=== PATIENT | female | born 1990 | race Caucasian/White ===

== ENCOUNTER 2018-02-02 12:00 | Emergency (ER) | payer OTHER ==
[~2018-02-02] VITALS: Ht 177.8 cm; Wt 57.7 kg
[2018-02-02] MEDS ORDERED: METH40TA3 PO (12:35)
[2018-02-02] MEDS ORDERED: KETOROLAC 30 MG/1 ML IVPush ONE (13:00)
[2018-02-02] MEDS ORDERED: SODIUM CHLORIDE 0.9% 1,000ML IVBOLUS ONE (13:00)
[2018-02-02] MEDS ORDERED: KETOROLAC 30 MG/1 ML ONE (13:03)
[2018-02-02 13:29] LABS: MEAN CORPUSCULAR HEMOGLOBIN 29.1 pg (27.0-34.8); MEAN CORPUSCULAR HGB CONC 33.2 g/dL (32.4-35.8); MEAN CORPUSCULAR VOLUME 87.7 fL (80-100); MEAN PLATELET VOLUME 7.3 fL (7.4-10.4); PLATELET COUNT 221 x10^3/uL (130-400); RED BLOOD COUNT 4.05 x10^6/uL (3.82-5.3); RED CELL DISTRIBUTION WIDTH 14.1 % (9.6-15.2)
[2018-02-02 13:42] LABS: ALANINE AMINOTRANSFERASE 18 U/L (12-78); ALBUMIN 2.4 g/dL (3.4-5.0); ANION GAP 6 mmol/L (5-15); CALCIUM 8.1 mg/dL (8.5-10.1); CHLORIDE 103 mmol/L (98-107); CREATININE 0.88 mg/dL (0.55-1.02)
[2018-02-02 13:46] LABS: ALKALINE PHOSPHATASE 98 U/L (45-117); BILIRUBIN,TOTAL 0.2 mg/dL (0.2-1.0); TROPONIN I < 0.015 ng/mL (0.000-0.045)
[2018-02-02] MEDS ORDERED: CEFTRIAXONE PMX 1GM/50ML 50 ML IVPB ONE (14:00)
[2018-02-02] MEDS ORDERED: CEFTRIAXONE PMX 1GM/50ML 50 ML ONE (14:02)
[2018-02-02] MEDS ORDERED: MORPHINE SULFATE 4 MG/ML, 1ML ONE (14:21)
[2018-02-02 14:27] LABS: MD YES
[2018-02-02 14:30] LABS: BAND#(MANUAL) 0.96 x10^3/uL; BANDS%(MANUAL) 9 % (0-7); EOS#(MANUAL) 0.11 x10^3/uL (0.0-0.4); EOS% (MANUAL) 1 % (1-7); LYMPH#(MANUAL) 0.86 x10^3/uL (1-3.4); LYMPHS% (MANUAL) 8 % (22-44); MONOS#(MANUAL) 0.21 x10^3/uL (0.3-2.7); MONOS% (MANUAL) 2 % (2-9); SEG#(MANUAL) 8.56 x10^3/uL (1.8-6.8); SEGS% (MANUAL) 80 % (42-75)
[2018-02-02] MEDS ORDERED: morphine SULFATE 10 MG/ML, 1ML IVPush ONE (14:30)
[2018-02-02] MEDS ORDERED: ONDANSETRON 2MG/ML, 2ML IVPush ONE (14:30)
[2018-02-02] MEDS ORDERED: AZITHROMYCIN 500 MG in SODIUM CHLORIDE 0.9% 250 ML IV ONE (14:30)
[2018-02-02 14:36] LABS: TOXIC GRAN 1+
[2018-02-02 14:37] LABS: <PLATELET ESTIMATE> ADEQUATE; <PLT MORPHOLOGY> NORMAL PLT MORPH
[2018-02-02 14:58] LABS: HCG UR SG 1.024 (1.003-1.030)
[2018-02-02 15:33] VITALS: BP 92/56
== END 2018-02-02 16:18 | disposition home or self-care (01) ==
LOC: ED 16:05
DX: J15.9 Unspecified bacterial pneumonia (principal); R09.1 Pleurisy; F17.200 Nicotine dependence, unspecified, uncomplicated
CPT/HCPCS: 36415; 71046; 80053; 81025; 83605; 84145; 84484; 85025; 85379; 87040; 87077; 87181; 93005; 96365; 96367; 96375; 99285; J0456; J0696; J1885; J2270; J7030; J7050

== ENCOUNTER 2018-08-03 10:35 | Emergency (ER) | payer MEDICAID, OTHER ==
[~2018-08-03] VITALS: Ht 177.8 cm; Wt 57.7 kg
[~2018-08-03 10:35] MED LIST: METH40TA3 PO
[2018-08-03] MEDS ORDERED: QUET100T4 PO (10:56)
--- NOTE | 2018-08-03 11:01 | NUR ---
pt to ed for possible withdrawal from benzos with associated n/v/loose stools and generalized aches and weakness. last used 2 days ago. pt also states used heroin last night. pt states she is ready to quit and would like referrals. connected to monitors. vss. med student evaluation complete. no needs expressed. call light within reach. awaiting edmd assessment and orders at this time.
[2018-08-03] MEDS ORDERED: ONDANSETRON ODT 4 MG ONE (11:28)
[2018-08-03] MEDS ORDERED: LORazepam 2 MG/ML, 1ML ONE (11:29)
[2018-08-03] MEDS ORDERED: LORazepam 2 MG/ML, 1ML IVPush ONE (11:30)
[2018-08-03] MEDS ORDERED: ONDANSETRON ODT 4 MG PO ONE (11:30)
--- NOTE | 2018-08-03 11:47 | NUR ---
iv established. labs drawn and ua collected and sent. pt medicated per jun. sw at bedside to begin consult. no needs at this time. call light within reach. vss. awaiting results.
[2018-08-03 12:11] LABS: BASOPHILS # (AUTO) 0.11 x10^3/uL (0-0.1); BASOPHILS % (AUTO) 1 % (0-1); EOSINOPHILS # (AUTO) 0.01 x10^3/uL (0-0.4); EOSINOPHILS % (AUTO) 0 % (1-7); LYMPHOCYTES # (AUTO) 2.04 x10^3/uL (1-3.4); LYMPHOCYTES % (AUTO) 24 % (22-44); MD NO; MEAN CORPUSCULAR HEMOGLOBIN 28.6 pg (27.0-34.8); MEAN CORPUSCULAR HGB CONC 33.3 g/dL (32.4-35.8); MEAN PLATELET VOLUME 6.9 fL (7.4-10.4); MONOCYTES # (AUTO) 0.36 x10^3/uL (0.2-0.8); MONOCYTES % (AUTO) 4 % (2-9); NEUTROPHILS # (AUTO) 5.89 x10^3/uL (1.8-6.8); NEUTROPHILS % (AUTO) 70 % (42-75); PLATELET COUNT 427 x10^3/uL (130-400); RED BLOOD COUNT 5.15 x10^6/uL (3.82-5.3); RED CELL DISTRIBUTION WIDTH 14.8 % (9.6-15.2)
[2018-08-03 12:12] LABS: ALANINE AMINOTRANSFERASE 38 U/L (12-78); ANION GAP 5 mmol/L (5-15); CALCIUM 9.3 mg/dL (8.5-10.1); CHLORIDE 105 mmol/L (98-107); CREATININE 0.68 mg/dL (0.55-1.02)
[2018-08-03 12:14] LABS: ALKALINE PHOSPHATASE 110 U/L (45-117); BILIRUBIN,TOTAL 0.7 mg/dL (0.2-1.0); TOTAL PROTEIN 8.3 g/dL (6.4-8.2)
[2018-08-03 12:18] LABS: ACETAMINOPHEN < 2 mcg/mL (10-30); SALICYLATE LEVEL < 1.7 mg/dL (2.8-20.0)
[2018-08-03 12:20] LABS: AMPHETAMINE SCREEN, URINE Negative (Negative); BARBITURATE SCREEN, URINE Negative (Negative); BENZODIAZEPINE SCREEN, URINE Negative (Negative); CANNABINOID SCREEN, URINE Positive (Negative); COCAINE SCREEN, URINE Negative (Negative); METHADONE SCREEN, URINE Negative (Negative); OPIATE SCREEN, URINE Positive (Negative)
--- NOTE | 2018-08-03 12:39 | NUR ---
all results back at this time. chart up for recheck.
[2018-08-03 13:07] VITALS: BP 133/73
--- NOTE | 2018-08-03 13:08 | NUR ---
PT RESTING IN ROOM WITH SO AT BEDSIDE. VSS. NO NEEDS EXPRESSED. CALL LIGHT WITHIN REACH. AWAITING SW AND REFERRAL DECISIONS.
--- NOTE | 2018-08-03 14:06 | NUR ---
DIET TRAY ORDERED AND PROVIDED. PT RESTING IN ROOM WITH SO AT BEDSIDE. NO NEEDS EXPRESSED. VSS. AWAITING [facility] EVALUATION.
--- NOTE | 2018-08-03 14:33 | NUR ---
TASK RN: [facility] CALLED AND SPOKE WITH THIS RN STATING THAT PT IS APPROPRIATE FOR THIER CARE AND MUST COME TO FACILITY TO BE EVALUATED FOR ADMIT. ERP,PRIMARY RN AND PT AWARE. PT DEMONSTRATES UNDERSTANDING. [facility] PHONE NUMBER AND ADDRESS PROVIDED TO PT. DC INSTRUCTION PROVIDED, PT DEMONSTRATES UNDERSTANDING. PT AMBULATED STEADILY TO DC WITH RN AND FRIEND. FRIEND TO TRANSPORT PT HOME.
== END 2018-08-03 14:36 | disposition home or self-care (01) ==
LOC: ED 11:19
DX: F11.129 Opioid abuse with intoxication, unspecified (principal); F31.9 Bipolar disorder, unspecified; F41.1 Generalized anxiety disorder; F17.200 Nicotine dependence, unspecified, uncomplicated
CPT/HCPCS: 36415; 80053; 80307; 80329; 85025; 93005; 96374; 99284; J2060; Q0162; G0480

== ENCOUNTER 2018-10-20 07:01 | Emergency (ER) | payer MEDICAID ==
[~2018-10-20] VITALS: Ht 177.8 cm; Wt 60.6 kg
[~2018-10-20 07:01] MED LIST changes: +QUET100T4 PO
[2018-10-20 07:24] VITALS: BP 96/67
--- NOTE | 2018-10-20 07:46 | NUR ---
COMFORT MEASURES TAKEN FOR PATIENT. PULSE OX ESTABLISHED. PATIENT SLEEPY BUT AWAKE TO VOICE.
[2018-10-20] MEDS ORDERED: LIDOCAINE-MPF 1%, 5ML ONE ×2 (07:57→09:19)
[2018-10-20] MEDS ORDERED: LIDOCAINE-MPF 1%, 5ML INFIL ONE (08:00)
[2018-10-20] MEDS ORDERED: ALPR1TAB10 SL (08:09)
[2018-10-20] MEDS ORDERED: CEFAZOLIN 1,000 MG IM ONE (08:30)
[2018-10-20 08:43] LABS: BASOPHILS # (AUTO) 0.04 x10^3/uL (0-0.1); BASOPHILS % (AUTO) 1 % (0-1); EOSINOPHILS # (AUTO) 0.22 x10^3/uL (0-0.4); EOSINOPHILS % (AUTO) 3 % (1-7); LYMPHOCYTES # (AUTO) 1.66 x10^3/uL (1-3.4); LYMPHOCYTES % (AUTO) 21 % (22-44); MD NO; MEAN CORPUSCULAR VOLUME 87.7 fL (80-100); MEAN PLATELET VOLUME 6.9 fL (7.4-10.4); MONOCYTES # (AUTO) 0.62 x10^3/uL (0.2-0.8); MONOCYTES % (AUTO) 8 % (2-9); NEUTROPHILS # (AUTO) 5.21 x10^3/uL (1.8-6.8); NEUTROPHILS % (AUTO) 67 % (42-75); PLATELET COUNT 282 x10^3/uL (130-400); RED BLOOD COUNT 4.35 x10^6/uL (3.82-5.3); RED CELL DISTRIBUTION WIDTH 13.9 % (9.6-15.2)
[2018-10-20 08:45] LABS: ALBUMIN 3.2 g/dL (3.4-5.0); ANION GAP 5 mmol/L (5-15); CALCIUM 8.6 mg/dL (8.5-10.1); CHLORIDE 107 mmol/L (98-107)
[2018-10-20 08:52] LABS: ALANINE AMINOTRANSFERASE 84 U/L (12-78); ALKALINE PHOSPHATASE 120 U/L (45-117); BILIRUBIN,TOTAL 0.6 mg/dL (0.2-1.0); TOTAL PROTEIN 6.6 g/dL (6.4-8.2)
[2018-10-20] MEDS ORDERED: CEFAZOLIN 1,000 MG ONE (09:19)
--- NOTE | 2018-10-20 09:41 | NUR ---
PT GIVEN ABX AND INSTRUCTIONS FOR WOUND CARE. PT VERBALIZED UNDERSTANDING.
== END 2018-10-20 09:56 | disposition home or self-care (01) ==
LOC: ED 09:14
DX: L02.414 Cutaneous abscess of left upper limb (principal); F11.129 Opioid abuse with intoxication, unspecified; F41.1 Generalized anxiety disorder; F31.9 Bipolar disorder, unspecified
CPT/HCPCS: 10060; 36415; 80053; 84703; 85025; 96372; 99283; J0690

== ENCOUNTER 2019-11-05 11:28 | Inpatient (IN) | payer MEDICAID ==
[~2019-11-05] VITALS: Ht 177.8 cm; Wt 87.4 kg
[~2019-11-05 11:28] MED LIST changes: +ALPR1TAB10 SL
--- NOTE | 2019-11-05 11:53 | NUR ---
Late entry due to pt care: Pt BIB [facility] from [facility]-Pt found unresponsive on floor of hotel room. Pt admits to heroin and alcohol use yesterday. Unknown amount of time spent on floor, at least 6 hours per pt. R shoulder with sunburn as well as large scabbed abrasion, R hand with bruising, blanchable redness and edema, R lateral upper thigh with blanchable redness, Bilat 5th toes with abrasions, L knee with blanchable redness. Pt A&O x4 but very drowsy. Occasional loose cough noted, pt reports no recent illness. Continuous heart, oxygen and BP monitors applied, all safety measures observed. Pt given sips of water per Dr. Dumas.
[2019-11-05] MEDS ORDERED: SODIUM CHLORIDE 0.9% 1,000ML IVBOLUS ONE ×2 (12:00→14:00)
[2019-11-05] MEDS ORDERED: PLEASE ENTER HEIGHT AND WEIGHT MC SCH (12:00)
[2019-11-05] MEDS ORDERED: ALPR1TAB2 PO (12:05)
[2019-11-05] MEDS ORDERED: HYDR25CA PO (12:05)
[2019-11-05] MEDS ORDERED: PROP20TA PO (12:05)
[2019-11-05 12:16] LABS: BASOPHILS % (AUTO) 0 % (0-1); EOSINOPHILS % (AUTO) 0 % (1-7); LYMPHOCYTES # (AUTO) 0.57 x10^3/uL (1-3.4); LYMPHOCYTES % (AUTO) 7 % (22-44); MD NO; MEAN CORPUSCULAR HGB CONC 33.2 g/dL (32.4-35.8); MEAN CORPUSCULAR VOLUME 93.3 fL (80-100); MEAN PLATELET VOLUME 7.4 fL (7.4-10.4); MONOCYTES # (AUTO) 0.19 x10^3/uL (0.2-0.8); MONOCYTES % (AUTO) 2 % (2-9); NEUTROPHILS # (AUTO) 7.88 x10^3/uL (1.8-6.8); NEUTROPHILS % (AUTO) 91 % (42-75); PLATELET COUNT 347 x10^3/uL (130-400); RED BLOOD COUNT 4.91 x10^6/uL (3.82-5.3); RED CELL DISTRIBUTION WIDTH 12.1 % (9.6-15.2)
[2019-11-05 12:30] LABS: ALBUMIN 3.7 g/dL (3.4-5.0); ANION GAP 8 mmol/L (5-15); CALCIUM 7.9 mg/dL (8.5-10.1); CHLORIDE 103 mmol/L (98-107); CREATININE 1.77 mg/dL (0.55-1.02)
[2019-11-05 12:37] LABS: TROPONIN I 0.577 ng/mL (0.000-0.045)
--- NOTE | 2019-11-05 12:43 | NUR ---
Dannie Chin [phone]
[2019-11-05] MEDS ORDERED: CLINDAMYCIN PMX 600MG/50ML 50 ML IV ONE (13:00)
[2019-11-05] MEDS ORDERED: CEFTRIAXONE PMX 1GM/50ML 50 ML IV ONE (13:00)
[2019-11-05] MEDS ORDERED: CEFTRIAXONE PMX 1GM/50ML 50 ML ONE (13:18)
[2019-11-05] MEDS ORDERED: CLINDAMYCIN PMX 600MG/50ML 50 ML ONE (13:18)
--- NOTE | 2019-11-05 13:39 | NUR ---
Patient is resting comfortably in bed, drowsy but easily rousable, A&Ox4. Vital Signs within normal limits. IV Rocephin hung.
--- NOTE | 2019-11-05 14:18 | NUR ---
ERMD AT BEDSIDE TO DISCUSS POC
[2019-11-05] MEDS ORDERED: INSULIN REGULAR 100 UNITS/ML, 3ML VIAL IVPush ONE (14:30)
[2019-11-05] MEDS ORDERED: DEXTROSE 50%, 50ML VIAL IVPush ONE (14:30)
[2019-11-05] MEDS ORDERED: SODIUM POLYSTYRENE SULFONATE ORAL SUSP PO ONE (14:30)
[2019-11-05] MEDS ORDERED: INSULIN SINGLE DOSE, ER ONE (14:31)
[2019-11-05] MEDS ORDERED: SODIUM POLY SULFONATE UDC 15 GM/60 ML ONE (14:31)
[2019-11-05] MEDS ORDERED: DEXTROSE 50%, 50ML SYRINGE ONE (14:31)
[2019-11-05] MEDS: SODIUM CHLORIDE 0.9% 1,000 ML IV SCH ×2 (14:42→20:08)
--- NOTE | 2019-11-05 14:53 | NUR ---
Report given to [facility].
[2019-11-05] MEDS ORDERED: PROMETHAZINE 25 MG/ML, 1ML IM PRN (15:00)
[2019-11-05] MEDS ORDERED: ONDANSETRON 2MG/ML, 2ML IVPush PRN (15:00)
[2019-11-05] MEDS ORDERED: hydrALAzine 20 MG/ML, 1ML IVPush PRN (15:00)
[2019-11-05] MEDS ORDERED: morphine SULFATE 10 MG/ML, 1ML IVPush PRN (15:00)
[2019-11-05] MEDS ORDERED: ASPIRIN 81 MG TABLET CHEW PO ONE ×2 (15:00→20:00)
[2019-11-05] MEDS: AZITHROMYCIN 500 MG in SODIUM CHLORIDE 0.9% 250 ML IV SCH (15:00)
[2019-11-05] MEDS ORDERED: CALCIUM GLUCONATE 0.46MEQ/1ML IVPush ONE (15:00)
[2019-11-05] MEDS ORDERED: LABETALOL 5MG/ML, 20ML IVPush PRN (15:00)
[2019-11-05] MEDS ORDERED: ACETAMINOPHEN 325 MG TABLET PO PRN (15:00)
[2019-11-05 15:23] LABS: ANION GAP 10 mmol/L (5-15); CALCIUM 6.8 mg/dL (8.5-10.1); CHLORIDE 107 mmol/L (98-107); CREATININE 1.22 mg/dL (0.55-1.02)
[2019-11-05] MEDS ORDERED: CALCIUM GLUCONATE 4.6 MEQ/10 ML ONE (15:27)
[2019-11-05] MEDS ORDERED: HEPARIN 5,000 UNITS/ML, 1ML ONE (15:27)
[2019-11-05] MEDS ORDERED: ASPIRIN 81 MG TABLET CHEW ONE (15:28)
[2019-11-05] MEDS ORDERED: NICOTINE 21 MG/24 HR PATCH.TD24 ONE (15:28)
--- NOTE | 2019-11-05 15:31 | NUR ---
PT BACK FROM CT
[2019-11-05] MEDS: HEPARIN 5,000 UNITS/ML, 1ML SQ SCH ×2 (15:38→23:21)
[2019-11-05] MEDS: NICOTINE 21 MG/24 HR PATCH.TD24 TD SCH (15:38)
--- NOTE | 2019-11-05 17:00 | NUR ---
Patient is resting comfortably in bed. Vital Signs within normal limits.
--- NOTE | 2019-11-05 17:34 | NUR ---
report called to bharti
[2019-11-05] MEDS: AMPICILLIN/SULBACTAM 1,500 MG in SODIUM CHLORIDE 0.9% 50 ML IV SCH ×2 (17:35→23:21)
--- NOTE | 2019-11-05 17:50 | NUR ---
Report given to TONY Acevedo on Telemetry.
--- NOTE | 2019-11-05 18:20 | NUR ---
Patient transferred to Telemetry by transport staff.
[2019-11-05] MEDS ORDERED: CALCIUM GLUCONATE 4.6 MEQ in SODIUM CHLORIDE 0.9% 100 ML IV ONE (18:30)
[2019-11-05 19:22] VITALS: BP 109/77
[2019-11-05 21:18] LABS: ANION GAP 10 mmol/L (5-15); CALCIUM 7.5 mg/dL (8.5-10.1); CHLORIDE 106 mmol/L (98-107); CREATININE 1.29 mg/dL (0.55-1.02)
[2019-11-05] MEDS ORDERED: POTASSIUM CHLORIDE 20 MEQ TAB.ER.PRT PO ONE (22:00)
[2019-11-05 23:13] LABS: HCG UR SG 1.025 (1.003-1.030)
[2019-11-05 23:16] LABS: MICROSCOPIC INDICATED
[2019-11-05 23:25] LABS: AMPHETAMINE SCREEN, URINE Positive (Negative); BARBITURATE SCREEN, URINE Negative (Negative); BENZODIAZEPINE SCREEN, URINE Positive (Negative); CANNABINOID SCREEN, URINE Positive (Negative); COCAINE SCREEN, URINE Negative (Negative); METHADONE SCREEN, URINE Negative (Negative); OPIATE SCREEN, URINE Positive (Negative)
[2019-11-06] MEDS: SODIUM CHLORIDE 0.9% 1,000 ML IV SCH ×3 (02:09→17:28)
[2019-11-06 02:12] VITALS: BP 126/87
[2019-11-06 02:52] LABS: BASOPHILS # (AUTO) 0.03 x10^3/uL (0-0.1); BASOPHILS % (AUTO) 0 % (0-1); EOSINOPHILS # (AUTO) 0.02 x10^3/uL (0-0.4); EOSINOPHILS % (AUTO) 0 % (1-7); LYMPHOCYTES # (AUTO) 1.22 x10^3/uL (1-3.4); LYMPHOCYTES % (AUTO) 16 % (22-44); MD NO; MEAN CORPUSCULAR HEMOGLOBIN 31.1 pg (27.0-34.8); MEAN CORPUSCULAR HGB CONC 33.5 g/dL (32.4-35.8); MEAN CORPUSCULAR VOLUME 92.7 fL (80-100); MEAN PLATELET VOLUME 7.2 fL (7.4-10.4); MONOCYTES # (AUTO) 0.43 x10^3/uL (0.2-0.8); MONOCYTES % (AUTO) 6 % (2-9); NEUTROPHILS # (AUTO) 6.16 x10^3/uL (1.8-6.8); NEUTROPHILS % (AUTO) 78 % (42-75); PLATELET COUNT 209 x10^3/uL (130-400); RED BLOOD COUNT 4.47 x10^6/uL (3.82-5.3); RED CELL DISTRIBUTION WIDTH 12.4 % (9.6-15.2)
[2019-11-06 02:54] LABS: ALANINE AMINOTRANSFERASE 228 U/L (12-78); ALBUMIN 2.2 g/dL (3.4-5.0); ANION GAP 8 mmol/L (5-15); CALCIUM 7.5 mg/dL (8.5-10.1); CHLORIDE 104 mmol/L (98-107); CREATININE 1.02 mg/dL (0.55-1.02)
[2019-11-06 02:56] LABS: ALKALINE PHOSPHATASE 114 U/L (45-117); BILIRUBIN,TOTAL 0.7 mg/dL (0.2-1.0); TOTAL PROTEIN 5.6 g/dL (6.4-8.2)
[2019-11-06] MEDS ORDERED: POTASSIUM CHLORIDE 40 MEQ in SODIUM CHLORIDE 0.9% 100 ML IV ONE (03:30)
[2019-11-06] MEDS ORDERED: POTASSIUM CHLORIDE 40 MEQ in SODIUM CHLORIDE 0.9% 500 ML IV ONE ×2 (03:30→09:30)
[2019-11-06] MEDS: AMPICILLIN/SULBACTAM 1,500 MG in SODIUM CHLORIDE 0.9% 50 ML IV SCH ×3 (05:14→17:28)
[2019-11-06 07:11] VITALS: BP 121/85
[2019-11-06] MEDS: HYDROcodone/APAP 5/325 TABLET PO PRN ×2 (07:31→08:45)
[2019-11-06] MEDS: HEPARIN 5,000 UNITS/ML, 1ML SQ SCH ×3 (07:35→23:50)
[2019-11-06] MEDS: OXYcodone IR 5MG TABLET PO PRN ×2 (11:49→23:50)
[2019-11-06] MEDS: ASPIRIN 81 MG TABLET CHEW PO SCH (11:49)
[2019-11-06] MEDS: CALCIUM CARBONATE 500 MG TABLET PO SCH ×2 (11:49→20:10)
[2019-11-06 12:56] VITALS: BP 117/81
[2019-11-06] MEDS ORDERED: SODIUM CHLORIDE 0.9% 1,000 ML IV SCH (14:42)
[2019-11-06] MEDS: AZITHROMYCIN 500 MG in SODIUM CHLORIDE 0.9% 250 ML IV SCH (15:19)
[2019-11-06] MEDS: NICOTINE 21 MG/24 HR PATCH.TD24 TD SCH (15:20)
[2019-11-06] MEDS: POTASSIUM CHLORIDE 20 MEQ TAB.ER.PRT PO SCH (17:28)
[2019-11-06 18:57] LABS: CLUE CELLS PRESENT (NONE SEEN); WET PREP WBCS FEW (FEW)
[2019-11-06 20:25] VITALS: BP 101/65
[2019-11-07] MEDS: AMPICILLIN/SULBACTAM 1,500 MG in SODIUM CHLORIDE 0.9% 50 ML IV SCH ×4 (00:01→17:15)
[2019-11-07] MEDS: SODIUM CHLORIDE 0.9% 1,000 ML IV SCH ×4 (00:36→23:53)
[2019-11-07 00:39] VITALS: BP 115/74
[2019-11-07 06:54] VITALS: BP 119/75
[2019-11-07 06:55] LABS: ALANINE AMINOTRANSFERASE 180 U/L (12-78); ALBUMIN 1.8 g/dL (3.4-5.0); ANION GAP 4 mmol/L (5-15); CALCIUM 7.5 mg/dL (8.5-10.1); CHLORIDE 108 mmol/L (98-107)
[2019-11-07 07:00] LABS: ALKALINE PHOSPHATASE 99 U/L (45-117); BILIRUBIN,TOTAL 0.5 mg/dL (0.2-1.0); CREATININE 0.82 mg/dL (0.55-1.02); TROPONIN I 0.677 ng/mL (0.000-0.045)
[2019-11-07 07:04] LABS: BASOPHILS # (AUTO) 0.03 x10^3/uL (0-0.1); BASOPHILS % (AUTO) 1 % (0-1); EOSINOPHILS # (AUTO) 0.04 x10^3/uL (0-0.4); EOSINOPHILS % (AUTO) 1 % (1-7); LYMPHOCYTES # (AUTO) 1.19 x10^3/uL (1-3.4); LYMPHOCYTES % (AUTO) 20 % (22-44); MD NO; MEAN CORPUSCULAR HEMOGLOBIN 30.5 pg (27.0-34.8); MEAN CORPUSCULAR HGB CONC 32.9 g/dL (32.4-35.8); MEAN CORPUSCULAR VOLUME 92.6 fL (80-100); MEAN PLATELET VOLUME 7.2 fL (7.4-10.4); MONOCYTES # (AUTO) 0.35 x10^3/uL (0.2-0.8); MONOCYTES % (AUTO) 6 % (2-9); NEUTROPHILS # (AUTO) 4.25 x10^3/uL (1.8-6.8); NEUTROPHILS % (AUTO) 73 % (42-75); PLATELET COUNT 207 x10^3/uL (130-400); RED BLOOD COUNT 3.91 x10^6/uL (3.82-5.3); RED CELL DISTRIBUTION WIDTH 12.4 % (9.6-15.2)
[2019-11-07 08:12] LABS: CREATINE KINASE, TOTAL 16571 U/L (26-192)
[2019-11-07] MEDS: OXYcodone IR 5MG TABLET PO PRN ×3 (08:25→17:15)
[2019-11-07] MEDS: HEPARIN 5,000 UNITS/ML, 1ML SQ SCH (08:25)
[2019-11-07] MEDS: CALCIUM CARBONATE 500 MG TABLET PO SCH ×2 (08:26→20:54)
[2019-11-07] MEDS: TAMSULOSIN 0.4 MG CAP.ER.24H PO SCH (08:26)
[2019-11-07] MEDS: POTASSIUM CHLORIDE 20 MEQ TAB.ER.PRT PO SCH ×2 (08:26→17:15)
[2019-11-07] MEDS: ASPIRIN 81 MG TABLET CHEW PO SCH (08:26)
[2019-11-07] MEDS: APIXABAN 5 MG TABLET PO SCH ×2 (11:01→20:54)
[2019-11-07 11:37] LABS: TROPONIN I 0.554 ng/mL (0.000-0.045)
[2019-11-07 12:09] VITALS: BP 111/68
[2019-11-07] MEDS: AZITHROMYCIN 500 MG in SODIUM CHLORIDE 0.9% 250 ML IV SCH (15:43)
[2019-11-07] MEDS: NICOTINE 21 MG/24 HR PATCH.TD24 TD SCH (15:44)
[2019-11-07 17:20] LABS: TROPONIN I 0.469 ng/mL (0.000-0.045)
[2019-11-07 19:45] VITALS: BP 119/80
[2019-11-07] MEDS: AMPICILLIN/SULBACTAM 1,500 MG in SODIUM CHLORIDE 0.9% 100 ML IV SCH (23:53)
[2019-11-08 00:05] VITALS: BP 117/75
[2019-11-08] MEDS: OXYcodone IR 5MG TABLET PO PRN ×4 (04:52→22:26)
[2019-11-08] MEDS: AMPICILLIN/SULBACTAM 1,500 MG in SODIUM CHLORIDE 0.9% 100 ML IV SCH ×2 (05:00→12:26)
[2019-11-08] MEDS: SODIUM CHLORIDE 0.9% 1,000 ML IV SCH ×3 (05:01→15:23)
[2019-11-08 06:42] LABS: CALCIUM 7.8 mg/dL (8.5-10.1); CHLORIDE 109 mmol/L (98-107)
[2019-11-08 06:50] LABS: ALANINE AMINOTRANSFERASE 160 U/L (12-78); ALBUMIN 1.8 g/dL (3.4-5.0); ALKALINE PHOSPHATASE 89 U/L (45-117); ANION GAP 4 mmol/L (5-15); BILIRUBIN,TOTAL 0.4 mg/dL (0.2-1.0); CREATININE 0.68 mg/dL (0.55-1.02); TROPONIN I 0.313 ng/mL (0.000-0.045)
[2019-11-08 07:22] LABS: CREATINE KINASE, TOTAL 12139 U/L (26-192)
[2019-11-08 07:57] VITALS: BP 132/87
[2019-11-08] MEDS: APIXABAN 5 MG TABLET PO SCH ×2 (09:58→20:11)
[2019-11-08] MEDS: CALCIUM CARBONATE 500 MG TABLET PO SCH ×2 (09:58→20:11)
[2019-11-08] MEDS: POTASSIUM CHLORIDE 20 MEQ TAB.ER.PRT PO SCH ×2 (09:58→17:20)
[2019-11-08] MEDS: TAMSULOSIN 0.4 MG CAP.ER.24H PO SCH (09:58)
[2019-11-08] MEDS: ASPIRIN 81 MG TABLET CHEW PO SCH (09:58)
[2019-11-08 10:06] VITALS: BP 127/80
[2019-11-08] MEDS: GUAIFENESIN 200 MG TABLET PO SCH ×3 (12:27→20:11)
[2019-11-08 13:02] VITALS: BP 133/87
[2019-11-08] MEDS: AZITHROMYCIN 500 MG in SODIUM CHLORIDE 0.9% 250 ML IV SCH (15:23)
[2019-11-08] MEDS: NICOTINE 21 MG/24 HR PATCH.TD24 TD SCH (15:23)
[2019-11-08] MEDS: AMPICILLIN/SULBACTAM 1,500 MG in SODIUM CHLORIDE 0.9% 50 ML IV SCH (18:28)
[2019-11-08 20:07] VITALS: BP 144/87
[2019-11-08] MEDS ORDERED: OMNIPAQUE 350 MG/ML, 75ML BOTTLE ONE (21:11)
[2019-11-08 21:53] LABS: BASOPHILS # (AUTO) 0.02 x10^3/uL (0-0.1); BASOPHILS % (AUTO) 0 % (0-1); EOSINOPHILS # (AUTO) 0.14 x10^3/uL (0-0.4); EOSINOPHILS % (AUTO) 2 % (1-7); LYMPHOCYTES # (AUTO) 1.59 x10^3/uL (1-3.4); LYMPHOCYTES % (AUTO) 25 % (22-44); MD NO; MEAN CORPUSCULAR HEMOGLOBIN 30.5 pg (27.0-34.8); MEAN CORPUSCULAR HGB CONC 33.2 g/dL (32.4-35.8); MEAN CORPUSCULAR VOLUME 91.7 fL (80-100); MEAN PLATELET VOLUME 6.6 fL (7.4-10.4); MONOCYTES # (AUTO) 0.41 x10^3/uL (0.2-0.8); MONOCYTES % (AUTO) 6 % (2-9); NEUTROPHILS # (AUTO) 4.23 x10^3/uL (1.8-6.8); NEUTROPHILS % (AUTO) 66 % (42-75); PLATELET COUNT 234 x10^3/uL (130-400); RED BLOOD COUNT 3.73 x10^6/uL (3.82-5.3); RED CELL DISTRIBUTION WIDTH 12.1 % (9.6-15.2)
[2019-11-08 22:06] LABS: ALANINE AMINOTRANSFERASE 189 U/L (12-78); ANION GAP 4 mmol/L (5-15); CHLORIDE 107 mmol/L (98-107); CREATININE 0.73 mg/dL (0.55-1.02)
[2019-11-08 22:08] LABS: ALKALINE PHOSPHATASE 84 U/L (45-117); BILIRUBIN,TOTAL 0.4 mg/dL (0.2-1.0); TOTAL PROTEIN 5.2 g/dL (6.4-8.2)
[2019-11-09] MEDS: AMPICILLIN/SULBACTAM 1,500 MG in SODIUM CHLORIDE 0.9% 50 ML IV SCH ×3 (00:22→12:24)
[2019-11-09 00:24] VITALS: BP 156/95
[2019-11-09] MEDS: OXYcodone IR 5MG TABLET PO PRN ×4 (02:09→23:04)
[2019-11-09 03:33] LABS: BASOPHILS # (AUTO) 0.01 x10^3/uL (0-0.1); BASOPHILS % (AUTO) 0 % (0-1); EOSINOPHILS # (AUTO) 0.14 x10^3/uL (0-0.4); EOSINOPHILS % (AUTO) 2 % (1-7); LYMPHOCYTES # (AUTO) 1.27 x10^3/uL (1-3.4); LYMPHOCYTES % (AUTO) 20 % (22-44); MD NO; MEAN CORPUSCULAR HEMOGLOBIN 30.3 pg (27.0-34.8); MEAN CORPUSCULAR HGB CONC 32.7 g/dL (32.4-35.8); MEAN CORPUSCULAR VOLUME 92.5 fL (80-100); MEAN PLATELET VOLUME 6.4 fL (7.4-10.4); MONOCYTES # (AUTO) 0.21 x10^3/uL (0.2-0.8); MONOCYTES % (AUTO) 3 % (2-9); NEUTROPHILS # (AUTO) 4.81 x10^3/uL (1.8-6.8); NEUTROPHILS % (AUTO) 75 % (42-75); PLATELET COUNT 243 x10^3/uL (130-400); RED BLOOD COUNT 3.76 x10^6/uL (3.82-5.3)
[2019-11-09 03:46] LABS: ALBUMIN 1.8 g/dL (3.4-5.0); ANION GAP 5 mmol/L (5-15); CALCIUM 7.9 mg/dL (8.5-10.1); CHLORIDE 106 mmol/L (98-107); CREATININE 0.66 mg/dL (0.55-1.02)
[2019-11-09 03:50] LABS: ALKALINE PHOSPHATASE 78 U/L (45-117); BILIRUBIN,TOTAL 0.3 mg/dL (0.2-1.0); TROPONIN I 0.244 ng/mL (0.000-0.045)
[2019-11-09 04:00] LABS: ALANINE AMINOTRANSFERASE 174 U/L (12-78)
[2019-11-09] MEDS ORDERED: HEPARIN 5,000 UNITS/ML, 1ML IV PRN ×2 (04:00→10:00)
[2019-11-09] MEDS ORDERED: HEPARIN 5,000 UNITS/ML, 1ML IV ONE ×2 (04:00→10:00)
[2019-11-09] MEDS ORDERED: HEPARIN 25,000 UNITS/250ML PMX 250 ML IV PRN ×2 (04:00→10:00)
[2019-11-09 04:22] LABS: CREATINE KINASE, TOTAL 12985 U/L (26-192)
[2019-11-09] MEDS: SODIUM CHLORIDE 0.9% 1,000 ML IV SCH (06:06)
[2019-11-09] MEDS: GUAIFENESIN 200 MG TABLET PO SCH ×4 (06:06→23:00)
[2019-11-09 07:07] VITALS: BP 126/81
[2019-11-09] MEDS: ASPIRIN 81 MG TABLET CHEW PO SCH (08:16)
[2019-11-09] MEDS: POTASSIUM CHLORIDE 20 MEQ TAB.ER.PRT PO SCH ×4 (08:16→23:01)
[2019-11-09] MEDS: CALCIUM CARBONATE 500 MG TABLET PO SCH (08:16)
[2019-11-09] MEDS: TAMSULOSIN 0.4 MG CAP.ER.24H PO SCH (08:16)
[2019-11-09] MEDS ORDERED: HEPARIN 1,000 UNITS/ML, 1ML IVPush ONE (10:00)
[2019-11-09] MEDS ORDERED: APIXABAN 5 MG TABLET PO SCH ×4 (11:30→21:00)
[2019-11-09 12:54] VITALS: BP 129/82
[2019-11-09] MEDS ORDERED: IBUPROFEN 200 MG TABLET ONE (15:16)
[2019-11-09] MEDS: NICOTINE 21 MG/24 HR PATCH.TD24 TD SCH (15:18)
[2019-11-09] MEDS: AMOXICILLIN/CLAV 875-125MG TABLET PO SCH (15:18)
[2019-11-09] MEDS: LACTATED RINGERS 1,000 ML IV SCH ×2 (15:19→23:05)
[2019-11-09] MEDS: IBUPROFEN 200 MG TABLET PO PRN (15:19)
[2019-11-09 19:12] VITALS: BP 122/79
[2019-11-09] MEDS: APIXABAN 5 MG TABLET PO SCH ×2 (21:00→23:01)
[2019-11-10 01:53] VITALS: BP 131/80
[2019-11-10] MEDS: AMOXICILLIN/CLAV 875-125MG TABLET PO SCH ×2 (03:36→13:37)
[2019-11-10] MEDS: OXYcodone IR 5MG TABLET PO PRN ×5 (03:39→23:24)
[2019-11-10] MEDS: LACTATED RINGERS 1,000 ML IV SCH ×3 (06:00→13:38)
[2019-11-10] MEDS: GUAIFENESIN 200 MG TABLET PO SCH ×4 (06:13→22:07)
[2019-11-10 07:16] VITALS: BP 127/85
[2019-11-10 07:53] LABS: ANION GAP 5 mmol/L (5-15); CALCIUM 8.3 mg/dL (8.5-10.1); CHLORIDE 104 mmol/L (98-107)
[2019-11-10 08:00] LABS: ALANINE AMINOTRANSFERASE 162 U/L (12-78); ALKALINE PHOSPHATASE 84 U/L (45-117); BILIRUBIN,TOTAL 0.5 mg/dL (0.2-1.0); CREATININE 0.64 mg/dL (0.55-1.02); TOTAL PROTEIN 5.5 g/dL (6.4-8.2); TROPONIN I 0.084 ng/mL (0.000-0.045)
[2019-11-10 08:24] LABS: CREATINE KINASE, TOTAL 6916 U/L (26-192)
[2019-11-10] MEDS: APIXABAN 5 MG TABLET PO SCH ×4 (09:00→22:06)
[2019-11-10] MEDS: TAMSULOSIN 0.4 MG CAP.ER.24H PO SCH (09:15)
[2019-11-10] MEDS: POTASSIUM CHLORIDE 20 MEQ TAB.ER.PRT PO SCH ×3 (09:15→22:07)
[2019-11-10] MEDS: ASPIRIN 81 MG TABLET CHEW PO SCH (09:16)
[2019-11-10] MEDS: AZITHROMYCIN 500 MG TABLET PO SCH (09:16)
[2019-11-10] MEDS: IBUPROFEN 200 MG TABLET PO PRN ×2 (10:47→17:14)
[2019-11-10 13:12] VITALS: BP 133/86
[2019-11-10] MEDS ORDERED: MAGNESIUM CITRATE 300ML ORAL SOL PO PRN (13:30)
[2019-11-10] MEDS ORDERED: POLYETHYLENE GLYCOL 17 GM PACKET PO PRN (13:30)
[2019-11-10] MEDS: DOCUSATE 100 MG CAPSULE PO SCH ×2 (13:37→15:46)
[2019-11-10] MEDS: NICOTINE 21 MG/24 HR PATCH.TD24 TD SCH (15:49)
[2019-11-10 17:08] VITALS: BP 137/91
[2019-11-10 19:09] VITALS: BP 130/88
[2019-11-10] MEDS: MAGNESIUM HYDROXIDE 8%, 30ML UDC PO SCH (22:07)
[2019-11-11] MEDS: LACTATED RINGERS 1,000 ML IV SCH (01:11)
[2019-11-11 01:13] VITALS: BP 126/82
[2019-11-11] MEDS: AMOXICILLIN/CLAV 875-125MG TABLET PO SCH ×2 (01:15→14:47)
[2019-11-11] MEDS: GUAIFENESIN 200 MG TABLET PO SCH ×4 (06:15→20:16)
[2019-11-11 07:25] VITALS: BP 127/83
[2019-11-11] MEDS: APIXABAN 5 MG TABLET PO SCH ×4 (09:00→21:00)
[2019-11-11] MEDS ORDERED: POTASSIUM CHLORIDE 20 MEQ TAB.ER.PRT PO SCH (09:00)
[2019-11-11] MEDS: OXYcodone IR 5MG TABLET PO PRN ×3 (09:14→20:17)
[2019-11-11] MEDS: TAMSULOSIN 0.4 MG CAP.ER.24H PO SCH (09:15)
[2019-11-11] MEDS: AZITHROMYCIN 500 MG TABLET PO SCH (09:15)
[2019-11-11] MEDS: DOCUSATE 100 MG CAPSULE PO SCH ×2 (09:15→20:17)
[2019-11-11 09:55] LABS: ALBUMIN 2.1 g/dL (3.4-5.0); CREATININE 0.69 mg/dL (0.55-1.02)
[2019-11-11 09:58] LABS: ALANINE AMINOTRANSFERASE 140 U/L (12-78); ALKALINE PHOSPHATASE 73 U/L (45-117); ANION GAP 6 mmol/L (5-15); BILIRUBIN,TOTAL 0.4 mg/dL (0.2-1.0); CHLORIDE 103 mmol/L (98-107); TOTAL PROTEIN 5.5 g/dL (6.4-8.2); TROPONIN I 0.023 ng/mL (0.000-0.045)
[2019-11-11 10:19] LABS: CALCIUM 8.2 mg/dL (8.5-10.1)
[2019-11-11 10:20] LABS: CREATINE KINASE, TOTAL 4213 U/L (26-192)
[2019-11-11] MEDS: IBUPROFEN 200 MG TABLET PO PRN ×2 (10:58→17:53)
[2019-11-11] MEDS ORDERED: AMOX1TAB12 PO (11:06)
[2019-11-11] MEDS ORDERED: OXYC5TAB3 PO (11:06)
[2019-11-11] MEDS ORDERED: AZIT500T10 PO (11:06)
[2019-11-11] MEDS ORDERED: GUAI200T37 PO (11:06)
[2019-11-11] MEDS ORDERED: APIX5TAB PO ×2 (11:08)
[2019-11-11 12:23] VITALS: BP 124/82
[2019-11-11] MEDS: NICOTINE 21 MG/24 HR PATCH.TD24 TD SCH (14:48)
[2019-11-11 18:57] VITALS: BP 119/81
[2019-11-11] MEDS: MAGNESIUM HYDROXIDE 8%, 30ML UDC PO SCH (20:17)
[2019-11-12 01:10] VITALS: BP 114/73
[2019-11-12] MEDS: APIXABAN 5 MG TABLET PO SCH ×3 (02:48→20:15)
[2019-11-12] MEDS ORDERED: LABETALOL 5MG/ML, 20ML IVPush PRN (03:00)
[2019-11-12] MEDS ORDERED: MAGNESIUM CITRATE 300ML ORAL SOL PO PRN (03:00)
[2019-11-12] MEDS ORDERED: IBUPROFEN 200 MG TABLET PO PRN (03:00)
[2019-11-12] MEDS ORDERED: PROMETHAZINE 25 MG/ML, 1ML IM PRN (03:00)
[2019-11-12] MEDS ORDERED: hydrALAzine 20 MG/ML, 1ML IVPush PRN (03:00)
[2019-11-12] MEDS ORDERED: POLYETHYLENE GLYCOL 17 GM PACKET PO PRN (03:00)
[2019-11-12] MEDS ORDERED: ONDANSETRON 2MG/ML, 2ML IVPush PRN (03:00)
[2019-11-12] MEDS: AMOXICILLIN/CLAV 875-125MG TABLET PO SCH ×2 (03:45→15:30)
[2019-11-12] MEDS: OXYcodone IR 5MG TABLET PO PRN ×5 (03:49→23:27)
[2019-11-12] MEDS: GUAIFENESIN 200 MG TABLET PO SCH ×4 (06:13→20:15)
[2019-11-12 07:43] VITALS: BP_SYST 116; BP_SYST 121; BP_DIAS 72; BP_DIAS 75
[2019-11-12] MEDS: DOCUSATE 100 MG CAPSULE PO SCH ×2 (09:00→20:15)
[2019-11-12] MEDS: TAMSULOSIN 0.4 MG CAP.ER.24H PO SCH (09:38)
[2019-11-12] MEDS: AZITHROMYCIN 500 MG TABLET PO SCH (09:38)
[2019-11-12] MEDS: POTASSIUM CHLORIDE 20 MEQ TAB.ER.PRT PO SCH (09:38)
[2019-11-12 10:16] LABS: ALANINE AMINOTRANSFERASE 115 U/L (12-78); ALBUMIN 2.2 g/dL (3.4-5.0); ANION GAP 4 mmol/L (5-15); CALCIUM 8.3 mg/dL (8.5-10.1); CHLORIDE 106 mmol/L (98-107); CREATININE 0.63 mg/dL (0.55-1.02)
[2019-11-12 10:30] LABS: ALKALINE PHOSPHATASE 70 U/L (45-117); BILIRUBIN,TOTAL 0.4 mg/dL (0.2-1.0); CREATINE KINASE, TOTAL 2679 U/L (26-192); TOTAL PROTEIN 5.3 g/dL (6.4-8.2)
[2019-11-12 12:22] VITALS: BP 123/80
[2019-11-12] MEDS: NICOTINE 21 MG/24 HR PATCH.TD24 TD SCH (15:32)
[2019-11-12] MEDS: MAGNESIUM HYDROXIDE 8%, 30ML UDC PO SCH (20:14)
[2019-11-12 20:50] VITALS: BP 114/77
[2019-11-13 01:23] VITALS: BP 121/76
[2019-11-13] MEDS: AMOXICILLIN/CLAV 875-125MG TABLET PO SCH ×2 (02:47→14:26)
[2019-11-13] MEDS: OXYcodone IR 5MG TABLET PO PRN ×5 (03:51→20:37)
[2019-11-13 05:35] LABS: CHLORIDE 103 mmol/L (98-107)
[2019-11-13 05:56] LABS: ALANINE AMINOTRANSFERASE 102 U/L (12-78); ALBUMIN 2.2 g/dL (3.4-5.0); ALKALINE PHOSPHATASE 64 U/L (45-117); ANION GAP 6 mmol/L (5-15); BILIRUBIN,TOTAL 0.4 mg/dL (0.2-1.0); CALCIUM 8.7 mg/dL (8.5-10.1); CREATINE KINASE, TOTAL 2148 U/L (26-192); CREATININE 0.56 mg/dL (0.55-1.02)
[2019-11-13] MEDS: GUAIFENESIN 200 MG TABLET PO SCH ×4 (06:24→20:36)
[2019-11-13 07:27] VITALS: BP 116/70
[2019-11-13] MEDS: TAMSULOSIN 0.4 MG CAP.ER.24H PO SCH (08:42)
[2019-11-13] MEDS: DOCUSATE 100 MG CAPSULE PO SCH ×2 (08:42→20:35)
[2019-11-13] MEDS: POTASSIUM CHLORIDE 20 MEQ TAB.ER.PRT PO SCH (08:42)
[2019-11-13] MEDS: AZITHROMYCIN 500 MG TABLET PO SCH (08:42)
[2019-11-13] MEDS: APIXABAN 5 MG TABLET PO SCH ×2 (09:08→20:36)
[2019-11-13] MEDS: metroNIDAZOLE 500 MG TABLET PO SCH ×2 (11:08→17:17)
[2019-11-13] MEDS: FLUCONAZOLE 200 MG TABLET PO SCH (11:09)
[2019-11-13 12:32] VITALS: BP 115/78
[2019-11-13] MEDS: NICOTINE 21 MG/24 HR PATCH.TD24 TD SCH (14:26)
[2019-11-13] MEDS: MAGNESIUM HYDROXIDE 8%, 30ML UDC PO SCH (20:36)
[2019-11-13 20:45] VITALS: BP 119/79
[2019-11-14 01:18] VITALS: BP 119/78
[2019-11-14] MEDS: metroNIDAZOLE 500 MG TABLET PO SCH ×3 (01:25→17:10)
[2019-11-14] MEDS: OXYcodone IR 5MG TABLET PO PRN ×4 (01:26→20:23)
[2019-11-14] MEDS: AMOXICILLIN/CLAV 875-125MG TABLET PO SCH (02:37)
[2019-11-14] MEDS: GUAIFENESIN 200 MG TABLET PO SCH ×4 (05:44→20:12)
[2019-11-14 05:51] LABS: CHLORIDE 105 mmol/L (98-107)
[2019-11-14 06:10] LABS: ALANINE AMINOTRANSFERASE 97 U/L (12-78); ALBUMIN 2.4 g/dL (3.4-5.0); ALKALINE PHOSPHATASE 62 U/L (45-117); ANION GAP 6 mmol/L (5-15); BILIRUBIN,TOTAL 0.5 mg/dL (0.2-1.0); CALCIUM 9.1 mg/dL (8.5-10.1); CREATINE KINASE, TOTAL 1369 U/L (26-192); CREATININE 0.56 mg/dL (0.55-1.02); TOTAL PROTEIN 5.3 g/dL (6.4-8.2)
[2019-11-14 07:05] VITALS: BP 133/84
[2019-11-14] MEDS: POTASSIUM CHLORIDE 20 MEQ TAB.ER.PRT PO SCH (09:06)
[2019-11-14] MEDS: DOCUSATE 100 MG CAPSULE PO SCH ×2 (09:06→20:11)
[2019-11-14] MEDS: FLUCONAZOLE 200 MG TABLET PO SCH (09:06)
[2019-11-14] MEDS: APIXABAN 5 MG TABLET PO SCH ×2 (09:07→20:12)
[2019-11-14] MEDS: TAMSULOSIN 0.4 MG CAP.ER.24H PO SCH (09:07)
[2019-11-14 13:55] VITALS: BP 116/78
[2019-11-14] MEDS: NICOTINE 21 MG/24 HR PATCH.TD24 TD SCH (16:35)
[2019-11-14] MEDS: FUROSEMIDE 20 MG TABLET PO SCH (16:36)
[2019-11-14 18:08] VITALS: BP 128/78
[2019-11-14] MEDS: MAGNESIUM HYDROXIDE 8%, 30ML UDC PO SCH (20:12)
[2019-11-14 20:28] VITALS: BP 124/80
[2019-11-15 01:07] VITALS: BP 121/73
[2019-11-15] MEDS: OXYcodone IR 5MG TABLET PO PRN ×5 (02:08→17:55)
[2019-11-15] MEDS: metroNIDAZOLE 500 MG TABLET PO SCH ×3 (02:08→17:43)
[2019-11-15] MEDS: GUAIFENESIN 200 MG TABLET PO SCH ×2 (06:13→11:11)
[2019-11-15 06:55] VITALS: BP 110/74
[2019-11-15 07:31] VITALS: BP 118/78
[2019-11-15] MEDS: DOCUSATE 100 MG CAPSULE PO SCH ×2 (09:00→20:33)
[2019-11-15] MEDS: APIXABAN 5 MG TABLET PO SCH ×2 (09:31→20:33)
[2019-11-15] MEDS: TAMSULOSIN 0.4 MG CAP.ER.24H PO SCH (09:33)
[2019-11-15] MEDS: FUROSEMIDE 20 MG TABLET PO SCH ×2 (09:33→17:43)
[2019-11-15 13:46] VITALS: BP 118/77
[2019-11-15] MEDS: NICOTINE 21 MG/24 HR PATCH.TD24 TD SCH (17:43)
[2019-11-15 19:02] VITALS: BP 120/78
[2019-11-15] MEDS: MAGNESIUM HYDROXIDE 8%, 30ML UDC PO SCH (20:33)
[2019-11-16 00:15] VITALS: BP 119/75
[2019-11-16] MEDS: OXYcodone IR 5MG TABLET PO PRN ×4 (02:23→17:51)
[2019-11-16] MEDS: metroNIDAZOLE 500 MG TABLET PO SCH ×3 (02:23→17:51)
[2019-11-16 02:30] VITALS: BP 119/79
[2019-11-16 05:36] LABS: ALBUMIN 2.4 g/dL (3.4-5.0); ANION GAP 7 mmol/L (5-15); CALCIUM 8.1 mg/dL (8.5-10.1); CHLORIDE 105 mmol/L (98-107)
[2019-11-16 05:40] LABS: ALANINE AMINOTRANSFERASE 80 U/L (12-78); ALKALINE PHOSPHATASE 64 U/L (45-117); BILIRUBIN,TOTAL 0.4 mg/dL (0.2-1.0); CREATINE KINASE, TOTAL 611 U/L (26-192); CREATININE 0.63 mg/dL (0.55-1.02); TOTAL PROTEIN 5.6 g/dL (6.4-8.2)
[2019-11-16 06:47] VITALS: BP 115/71
[2019-11-16] MEDS: DOCUSATE 100 MG CAPSULE PO SCH ×2 (07:53→20:04)
[2019-11-16] MEDS: APIXABAN 5 MG TABLET PO SCH ×2 (07:53→20:04)
[2019-11-16] MEDS: FUROSEMIDE 20 MG TABLET PO SCH ×2 (07:53→17:51)
[2019-11-16 13:20] VITALS: BP 108/69
[2019-11-16] MEDS: NICOTINE 21 MG/24 HR PATCH.TD24 TD SCH (14:36)
[2019-11-16] MEDS: MAGNESIUM HYDROXIDE 8%, 30ML UDC PO SCH (20:04)
[2019-11-16 20:13] VITALS: BP 118/85
[2019-11-17] MEDS: metroNIDAZOLE 500 MG TABLET PO SCH ×2 (02:37→09:21)
[2019-11-17 02:38] VITALS: BP 110/68
[2019-11-17 07:56] VITALS: BP 112/76
[2019-11-17] MEDS: FUROSEMIDE 20 MG TABLET PO SCH (09:21)
[2019-11-17] MEDS: APIXABAN 5 MG TABLET PO SCH (09:21)
[2019-11-17] MEDS: DOCUSATE 100 MG CAPSULE PO SCH (09:21)
[2019-11-17] MEDS: OXYcodone IR 5MG TABLET PO PRN ×2 (09:35→17:05)
[2019-11-17 15:19] VITALS: BP 112/73
[2019-11-17] MEDS: NICOTINE 21 MG/24 HR PATCH.TD24 TD SCH (16:19)
== END 2019-11-17 20:01 | disposition home or self-care (01) | DRG 917 ==
LOC: ED 14:03 → EDIP 14:04 → ED 14:19 → 5SO 18:13 → UNDODISIN 11-11 20:49 → 3N 11-14 17:25
PROVIDERS: ADMIT Internal Medicine; ATTEND Internal Medicine
DX: T40.1X1A Poisoning by heroin, accidental (unintentional), initial encounter (principal); G92 Toxic encephalopathy; I26.99 Other pulmonary embolism without acute cor pulmonale; J69.0 Pneumonitis due to inhalation of food and vomit; J96.01 Acute respiratory failure with hypoxia; D68.69 Other thrombophilia; E46 Unspecified protein-calorie malnutrition; E87.1 Hypo-osmolality and hyponatremia; I82.401 Acute embolism and thrombosis of unspecified deep veins of right lower extremity; I24.8 Other forms of acute ischemic heart disease; J98.11 Atelectasis; L03.113 Cellulitis of right upper limb; M62.82 Rhabdomyolysis; N17.9 Acute kidney failure, unspecified; E66.9 Obesity, unspecified; E86.0 Dehydration; E87.5 Hyperkalemia; E87.6 Hypokalemia; F11.90 Opioid use, unspecified, uncomplicated; Z20.828 Contact with and (suspected) exposure to other viral communicable diseases; K83.8 Other specified diseases of biliary tract; N76.0 Acute vaginitis; F17.200 Nicotine dependence, unspecified, uncomplicated; F41.9 Anxiety disorder, unspecified; R73.9 Hyperglycemia, unspecified; Z68.27 Body mass index [BMI] 27.0-27.9, adult; Y92.89 Other specified places as the place of occurrence of the external cause
CPT/HCPCS: 36415; 70450; 71045; 71275; 76705; 76770; 80048; 80053; 80307; 81001; 81025; 82040; 82330; 82550; 82607; 83036; 83605; 84443; 84484; 84550; 85025; 85520; 86592; 87040; 87077; 87086; 87186; 87210; 87491; 87591; 87635; 87806; 87808; 93005; 93306; 96361; 96365; 96367; 96375; G0378; J0456; J0610; J0696; J1644; J3480; Q9967; G0475; J0295; J1815; J7030; J7040; J7050; J7120